=== PATIENT | male | born 1965 | race Caucasian/White ===

== ENCOUNTER 2020-08-15 20:27 | Emergency (ER) | payer BC ==
[~2020-08-15] VITALS: Ht 172.7 cm; Wt 90.7 kg
[2020-08-15 20:48] VITALS: BP_SYST 143
--- NOTE | 2020-08-15 21:26 | NUR ---
of patient harika called wanting update. pt on ems gurney still. [phone]
[2020-08-15] MEDS ORDERED: NACL 0.9% 1,000 ML IV ONE (21:30)
--- NOTE | 2020-08-15 21:34 | NUR ---
Patient to [facility] for evaluation. Side rails up. Report given to DEXTER Todd
--- NOTE | 2020-08-15 21:35 | NUR ---
Pt BIBA to ED C/O alcohol intoxication. The patient admits to drinking many beers and smoking marijuana tonight. He felt as if his heart was racing prompting ED visits. He denies any pain, chest pain, headache, or shortness of breath. VSS no s/s of acute distress Resting on gurney rails up
--- NOTE | 2020-08-15 21:45 | NUR ---
Dr. Ku bedside for pt eval
[2020-08-15 21:50] LABS: BASOPHILS # (AUTO) 0.1 K/uL (0.0-0.2); BASOPHILS % (AUTO) 1.7 % (0.0-2.0); EOSINOPHILS # (AUTO) 0.1 K/uL (0.0-0.4); EOSINOPHILS % (AUTO) 0.8 % (0.0-4.0); HEMATOCRIT 45.2 % (36-54); HEMOGLOBIN 15.7 g/dL (14.0-18.0); LYMPHOCYTES # (AUTO) 1.8 K/uL (1.0-5.5); LYMPHOCYTES % (AUTO) 26.3 % (20.5-51.5); MEAN CORPUSCULAR HEMOGLOBIN 35 pg (27-31); MEAN CORPUSCULAR HGB CONC 35 % (32-36); MEAN CORPUSCULAR VOLUME 100 fL (79.0-98.0); MONOCYTES # (AUTO) 0.4 K/uL (0.0-1.0); MONOCYTES % (AUTO) 6.1 % (1.7-9.3); NEUTROPHILS # (AUTO) 4.6 K/uL (1.8-7.7); NEUTROPHILS % (AUTO) 65.1 % (40.0-70.0); PLATELET COUNT (AUTO) 214 K/uL (130-430)
[2020-08-15 22:05] LABS: CALCIUM 9.4 mg/dL (8.4-11.0); CREATININE 1.36 mg/dL (0.55-1.30); POTASSIUM 3.6 mmol/L (3.5-5.1)
[2020-08-15 22:10] LABS: ALBUMIN 4.1 g/dL (3.4-4.8); TOTAL BILIRUBIN 0.3 mg/dL (0.0-1.0)
[2020-08-15 22:30] VITALS: BP_SYST 123
--- NOTE | 2020-08-15 22:30 | NUR ---
Patient given written and verbal discharge instructions and verbalizes understanding. ER MD discussed with patient the results and treatment provided. Patient in stable condition. ID arm band removed. IV catheter removed intact and dressing applied, no active bleeding. Patient educated on pain management and to follow up with PMD. Pain Scale 0/10 Opportunity for questions provided and answered.
== END 2020-08-15 22:30 | disposition home or self-care (01) ==
LOC: SED 20:27
DX: F10.129 Alcohol abuse with intoxication, unspecified (principal); F12.90 Cannabis use, unspecified, uncomplicated
CPT/HCPCS: 36415; 80053; 85025; 96360; 99283; G0482; J7030